=== PATIENT | female | born 1990 | race Caucasian/White ===

== ENCOUNTER 2022-12-18 16:20 | Emergency (ER) | payer BC ==
[~2022-12-18] VITALS: Ht 167.6 cm; Wt 140.0 kg
[2022-12-18 16:36] VITALS: TEMP 98.2
[2022-12-18 17:28] LABS: COLLECTION METHOD IN
[2022-12-18 18:00] LABS: MUCOUS Present (NOT PRESENT); SQUAMOUS EPITHELIAL 0-2 /hpf (0-10); URINE BACTERIA None Seen /hpf (NONE SEEN); URINE COLOR Yellow (YELLOW); URINE RBC 0-2 /hpf (0-2)
[2022-12-18 18:01] LABS: PH 5.5 (5-8); URINE APPEARANCE Clear (CLEAR/HAZY); URINE BLOOD Negative (NEGATIVE); URINE GLUCOSE Negative (NEGATIVE); URINE KETONE Negative (NEGATIVE); URINE NITRATE Negative (NEGATIVE); URINE PROTEIN(semi-quant) Negative (NEGATIVE); URINE UROBILINOGEN 0.2 (NEGATIVE)
[2022-12-18 22:45] VITALS: BP 150/91; PULSE 97
== END 2022-12-18 22:45 | disposition short-term general hospital (02) ==
LOC: COL.ER 16:20
PROVIDERS: Nurse Practitioner Primary Care
DX: M54.16 Radiculopathy, lumbar region (principal); R33.9 Retention of urine, unspecified; E66.01 Morbid (severe) obesity due to excess calories; Z68.42 Body mass index [BMI] 45.0-49.9, adult; Z98.890 Other specified postprocedural states; W10.9XXA Fall (on) (from) unspecified stairs and steps, initial encounter; Y92.009 Unspecified place in unspecified non-institutional (private) residence as the place of occurrence of the external cause
CPT/HCPCS: J1885; J2270